=== PATIENT | male | born 1995 | race Caucasian/White ===

== ENCOUNTER 2018-03-25 13:14 | Emergency (ER) | payer BC | END 2018-03-25 14:21 | disposition left against medical advice (07) | DX: Z53.21 Procedure and treatment not carried out due to patient leaving prior to being seen by health care provider (principal) ==

== ENCOUNTER 2018-09-21 14:34 | Emergency (ER) | payer BC ==
[2018-09-21 14:43] VITALS: BP 112/87
--- NOTE | 2018-09-21 15:00 | EDPHY ---
H & P Stated Complaint: UC flair Time Seen by Provider: 09/21/18 14:51 HPI/ROS: CHIEF COMPLAINT: Ulcerative colitis HISTORY OF PRESENT ILLNESS: The patient is a 23-year-old man with a history of ulcerative colitis who is been on long-term prednisone and mesalamine. He is followed by GI of the [facility] and they are trying to get him onto Humira. He is also on IV drug abuser however had missed several appointments. He states that he went without his prednisone and mesalamine for about 2 months. He had significant flares at that time. He has an appoint with his gastrologist again on the but called them today asking for advice. They recommended he come here because they did not have time to seen in the office today. He denies having any pain a fevers or change in symptoms but is simply asking for a vice on how to take his medications. He states that he restarted himself on 40-60 mg of prednisone for the last week but has not resumed his mesalamine. He has medications at home as well as prescriptions the in the pharmacy but was not sure if she restart them. No fever. Severity: Moderate Modifying factors: None REVIEW OF SYSTEMS: Constitutional: denies: chills, fever, recent illness, recent injury EENTM: denies: blurred vision, double vision, nose congestion Respiratory: denies: cough, shortness of breath Cardiac: denies: chest pain, irregular heart rate, lightheadedness, palpitations Gastrointestinal/Abdominal: See HPI Genitourinary: denies: dysuria, frequency, hematuria, pain Musculoskeletal: denies: joint pain, muscle pain Skin: denies: lesions, rash, jaundice, bruising Neurological: denies: headache, numbness, paresthesia, tingling, dizziness, weakness Hematologic/Lymphatic: denies: blood clots, easy bleeding, easy bruising Immunologic/allergic: denies: HIV/AIDS, transplant 10 systems reviewed and negative except as noted EXAM: GENERAL: Well-appearing, well-nourished and in no acute distress. HEAD: Atraumatic, normocephalic. EYES: Enlarged pupils, extraocular movements intact, sclera anicteric, conjunctiva are normal. ENT: TMs normal, nares patent, oropharynx clear without exudates. Moist mucous membranes. NECK: Normal range of motion, supple without lymphadenopathy or JVD. LUNGS: Breath sounds clear to auscultation bilaterally and equal. No wheezes rales or rhonchi. HEART: Regular rate and rhythm without murmurs, rubs or gallops. ABDOMEN: Soft, nontender, normoactive bowel sounds. No guarding, no rebound. No masses appreciated. BACK: No CVA tenderness, no spinal tenderness, step-offs or deformities EXTREMITIES: Normal range of motion, no pitting or edema. No clubbing or cyanosis. NEUROLOGICAL: Cranial nerves II through XII grossly intact. Normal speech, normal gait. 5/5 strength, normal movement in all extremities, normal sensation , normal reflexes PSYCH: Normal mood, normal affect. SKIN: Warm, dry, normal turgor, no visible rashes or lesions. Source: Patient Exam Limitations: No limitations - Personal History Current Tetanus/Diphtheria Vaccine: Yes Current Tetanus Diphtheria and Acellular Pertussis (TDAP): Yes - Medical/Surgical History Hx Asthma: No Hx Chronic Respiratory Disease: No Hx Diabetes: No Hx Cardiac Disease: No Hx Renal Disease: No Hx Cirrhosis: No Hx Alcoholism: No Hx HIV/AIDS: No Hx Splenectomy or Spleen Trauma: No Other PMH: ADD, iv drug use, UC - Family History Significant Family History: No pertinent family hx - Social History Smoking Status: Current every day smoker Alcohol Use: None Constitutional: Initial Vital Signs Temperature (C) 36.6 C 09/21/18 14:40 Heart Rate 129 H 09/21/18 14:40 Respiratory Rate 16 09/21/18 14:40 Blood Pressure 112/87 H 09/21/18 14:40 O2 Sat (%) 92 09/21/18 14:40 O2 Delivery Mode Room Air Allergies/Adverse Reactions: yellow jackets/hornet Allergy (Uncoded 09/21/18 14:39) Home Medications: Medication Instructions Recorded Fluconazole [Diflucan (*)] 150 mg PO ONCE #1 tab 09/21/18 Mesalamine 09/21/18 Prednisone 09/21/18 predniSONE 60 mg PO DAILY #15 tab 09/21/18 Medical Decision Making ED Course/Re-evaluation: At his best a few months ago he was on prednisone 40 mg daily as well as mesalamine 1.5 mg twice a day as well as daily rectal flush of mesalamine. After much discussion about the options I advised him to restart this regimen. He has all the medications he needs at home but would like a larger mg dosage of prednisone because the ones he currently has or 5 mg. The I agreed to this plan and he has scheduled appointment follow-up with Dr. Escalona on the . He declines further workup or testing at this time. He has no new complaints other than asking for advice his medication. Patient is also asking for prescription for Diflucan because he has gotten oral thrush infections before on high doses of prednisone. Differential Diagnosis: Partial list of the Differential diagnosis considered include but were not limited to; ulcer colitis flare, peritonitis and although unlikely based on the history and physical exam, I also considered perforation, ischemia, the cancer. I discussed these differential diagnoses and the plan with the patient as well as the usual and expected course. The patient understands that the diagnosis is provisional and that in medicine we are not always correct and that further workup is often warranted. Usual and customary warnings were given. All of the patient's questions were answered. The patient was instructed to return to the emergency department should the symptoms at all worsen or return, otherwise to followup with the physician as we discussed. Departure - Departure Disposition: Home, Routine, Self-Care Clinical Impression: Ulcerative colitis Qualifiers: Ulcerative colitis location: unspecified ulcerative colitis location Digestive disease complication type: without complication Qualified Code(s): K51.90 - Ulcerative colitis, unspecified, without complications Condition: Fair Instructions: Ulcerative Colitis (ED) Referrals: Francisco Larson MD [Primary Care Provider] - As per Instructions Dale Escalona MD, FACG [Medical Doctor] - 5-7 days, call for appt. (as scheduled ) Prescriptions: Fluconazole [Diflucan (*)] 150 mg PO ONCE #1 tab predniSONE 60 mg PO DAILY #15 tab
== END 2018-09-21 15:10 | disposition home or self-care (01) ==
DX: K51.90 Ulcerative colitis, unspecified, without complications (principal); F17.200 Nicotine dependence, unspecified, uncomplicated

== ENCOUNTER 2018-09-22 05:48 | Emergency (ER) | payer BC ==
[2018-09-22 05:56] VITALS: BP 144/78
--- NOTE | 2018-09-22 06:34 | EDPHY ---
H & P Stated Complaint: fever, dx with UC 09/21 Time Seen by Provider: 09/22/18 06:07 HPI/ROS: HPI The patient presents with concern for fever overnight tonight. The patient has a history of ulcerative colitis, followed by GI [facility] though had missed several appointments likely related to his drug use. He also went off of his medications, prednisone and mesalamine during this time. He called his manager radio yesterday and was routed to the emergency department for further care. Here, we initiated his medications and wrote him for prescriptions for his usual doses. He has a follow-up appointment with Gastroenterology on the of this month. He was told to return if he had any fevers. He went home and used methamphetamine. Overnight he felt sweaty and was concerned that he had a fever. He checked his temperature and it was 98 F. He was still concerned so he came into the emergency department. He denies any other symptoms. . REVIEW OF SYSTEMS 10 systems were reviewed and negative with the exception of the elements mentioned in the history of present illness. PMHx: Ulcerative colitis Soc Hx: IV drug use including methamphetamine PHYSICAL General Appearance: Alert, tweaking, eyes wide open, twitching Eyes: Pupils equal and round no pallor or injection ENT, Mouth: Mucous membranes moist Respiratory: There are no retractions, lungs are clear to auscultation Cardiovascular: Tachycardic rate and regular rhythm Gastrointestinal: Abdomen is soft and non-tender, no masses, bowel sounds normal Neurological: A&O, moves all extremities Skin: Warm and dry, no rashes Musculoskeletal: Neck is supple non tender Extremities: symmetrical, full range of motion Psychiatric: Patient is oriented X 3, there is no agitation Source: Patient Exam Limitations: No limitations - Personal History Current Tetanus/Diphtheria Vaccine: Yes - Medical/Surgical History Hx Asthma: No Hx Chronic Respiratory Disease: No Hx Diabetes: No Hx Cardiac Disease: No Hx Renal Disease: No Hx Cirrhosis: No Hx Alcoholism: No Hx HIV/AIDS: No Hx Splenectomy or Spleen Trauma: No Other PMH: ADD, iv drug use, UC, - Social History Smoking Status: Current every day smoker Constitutional: Initial Vital Signs Temperature (C) 37.1 C 09/22/18 05:49 Heart Rate 130 H 09/22/18 05:49 Respiratory Rate 20 09/22/18 05:49 Blood Pressure 144/78 H 09/22/18 05:49 O2 Sat (%) 96 09/22/18 05:49 O2 Delivery Mode Room Air Allergies/Adverse Reactions: yellow jackets/hornet Allergy (Uncoded 09/21/18 14:39) Home Medications: Medication Instructions Recorded Fluconazole [Diflucan (*)] 150 mg PO ONCE #1 tab 09/21/18 Mesalamine 09/21/18 Prednisone 09/21/18 predniSONE 60 mg PO DAILY #15 tab 09/21/18 Medical Decision Making Differential Diagnosis: 23-year-old male presents from home with concern for fever. History of ulcerative colitis, noncompliant with medications which were re-initiated from the emergency department yesterday. Here, he is afebrile, he does appear to be intoxicated on methamphetamine with tachycardia. He does not appear to be septic. Plan for discharge home. I have discussed with him the importance of quitting any drug use. I have explained that this prevents him from taking care of himself. He is in agreement. I have discussed return precautions. He has a GI follow-up appointment soon. Departure - Departure Disposition: Home, Routine, Self-Care Clinical Impression: Methamphetamine abuse, Tachycardia Ulcerative colitis Qualifiers: Ulcerative colitis location: unspecified ulcerative colitis location Digestive disease complication type: unspecified complication Qualified Code(s): K51.919 - Ulcerative colitis, unspecified with unspecified complications Condition: Good Instructions: Ulcerative Colitis (ED), Methamphetamine Abuse (ED) Additional Instructions: Please take your medications as prescribed. Please follow-up with your GI appointment. Referrals: Francisco Larson MD [Primary Care Provider] - As per Instructions Dale Escalona MD, FACG [Medical Doctor] - As per Instructions
== END 2018-09-22 06:43 | disposition home or self-care (01) ==
DX: F15.10 Other stimulant abuse, uncomplicated (principal); R00.0 Tachycardia, unspecified; K51.919 Ulcerative colitis, unspecified with unspecified complications; F17.200 Nicotine dependence, unspecified, uncomplicated